=== PATIENT | male | born 1980 | race Caucasian/White ===

== ENCOUNTER 2019-12-17 13:52 | Inpatient (IN) | payer SELFPAY ==
[2019-12-17] VITALS (33 sets, daily range): BP systolic 103–126; BP diastolic 42–94; PULSE 57–98; RESP 0–20; TEMP 36.4–37.1; O2SAT 84–99
--- NOTE | 2019-12-17 14:20 | ED.GENADUL_ITS ---
Discharge Plan Discharge Details Chief Complaint: AMS/LOC Clinical Impression: Acute hyperkalemia, Altered mental status Admit Date/Time: 12/17/19 15:44 Admit Provider: Sukhdev Rodrigez Attending Provider: Sukhdev Rodriegz Primary Care Provider: None,None ED Provider: Chrissie Toro Discharge Data Discharge Date/Time-TO BE ENTERED AT DEPARTURE: 12/17/19 17:05 Medical Decision Making 39-year-old male presents to the ER with altered mental status. Patient was found unresponsive at 1230 by family, when EMS arrived patient was no longer unresponsive but was confused. Patient admits to doing cocaine and drinking beers last night. Patient does appear to be under the influence of some substance. He is sleepy, pupils are 4 mm bilaterally and round and sluggish. He does follow commands when directed. No obvious trauma noted. At this time head CT without contrast ordered, chest x-ray, labs alcohol and UDS. Patient is satting 97% on room air. 1452: Initial potassium came back critically high at 6.3 we will repeat a BMP to verify. 1545: Repeat potassium came back at 6.7 will initiate gram of calcium chloride, 10 mg continuous albuterol neb, 7 units of insulin, 50 mEq bicarb [address] Enriquez and hospitalist team regarding admission he agrees to accept patient for admission to ICU at this time for hyperkalemia and altered mental status. Kassandra ordered for urine drug screen sample. Patient is awake at this time. 1548: Spoke with Deysi, patients Mother who states that she found him unresponsive in a chair at his brothers this afternoon, he was having labored breathing and was confused. She states that they may have been smoking crack which may have been laced with Fentanyl. HPI General Mode of arrival: EMS . Date/Time Provider Initiated Documentation: 12/17/19 14:02 . Limitations to Documentation: altered mental status . Information obtained by: patient, EMS and RN notes reviewed . HPI Narrative: 39-year-old male presents to the ER with altered mental status. Patient was found unresponsive at 1230 by family, when EMS arrived patient was no longer unresponsive but was confused. Patient admits to doing cocaine and drinking beers last night. Patient does appear to be under the influence of some substance. He is sleepy, pupils are 4 mm bilaterally and round and sluggish. He does follow commands when directed. No obvious trauma noted. Related Data Home Medications Medication Instructions Recorded Confirmed Unknown [No Known Home Meds] 12/17/19 12/17/19 Allergies Allergy/AdvReac Type Severity Reaction Status Date / Time Penicillins AdvReac Intermediate unknown Unverified 12/17/19 14:14 General Stated Complaint: AMS/LOC JUAN MIGUEL: 3 Review of Systems Narrative: History limited by patient's medical condition. Constitutional: Negative for weight loss, normal body habitus, appears altered. HEENT: Denies trauma, headaches, sore throat, trouble swallowing. Chest: Denies chest pain, palpitations, irregular rhythm, hypertension. Respiratory: Denies Shortness of breath, cough, hemoptysis. GI: Denies abdominal pain, nausea, vomiting, diarrhea, constipation. : Denies dysuria, hematuria, flank pain, rectal bleeding. Neuro: Denies dizziness, blurry vision, weakness, syncope, headache or facial numbness. Hematologic: Denies easy bruising, intolerance to heat or cold, hair loss. Psychiatric Psychiatric: Reports as per HPI, Denies homicidal ideation (Denies) and Denies suicidal ideation [facility] Social History Smoking/Tobacco Use Status: Former Tobacco Use Drug use: Occasionally Do you feel safe in your relationship?: Yes Exam Narrative Exam Narrative: Constitutional: Appears stated age. Normal body habitus. See below Head: Normocephalic, no signs of trauma. Eyes: Pupils PERRLA, pupils are 4 mm bilaterally and sluggish, Red reflex noted, EOM's intact. Eyelids symmetrical without lesions, discharge, or swelling. ENT: Bilateral TM's WNL, External ear normal to inspection, no mastoid TTP, swelling, or erythema, Nasal turbinates WNL, no nasal discharge. Normal dentition, Posterior pharynx WNL, no exudate. Chest: RRR, Normal S1, S2, distal pulses intact. Resp: Lungs clear to auscultation bilaterally, no wheezes, rales, or rhonchi. Musculoskeletal: Normal gait, 5/5 strength to all four extremities. Skin: No suspicious rashes or lesions. Capillary refill less than 2 sec. Neurologic: Cranial nerves II-XII intact. DTR's intact. See below Hematologic/Lymphatic: No ecchymosis, no lymphadenopathy. Neuro General: patient awake, oriented Patient Orientation: Person, moves all extremities, no focal motor deficits, CN's II-XI intact bilaterally and patient confused (Appears intoxicated) Speech: abnormal speech slurred Motor: muscle tone normal throughout and strength 5/5 throughout Course Vital Signs Vital signs: Vital Signs Temperature 36.4 C L 12/17/19 14:03 Pulse 91 H 12/17/19 14:03 Respiratory Rate 18 12/17/19 14:03 Blood Pressure 118/81 12/17/19 14:03 Pulse Oximetry 97 12/17/19 14:03 Temperature 36.4 C L 12/17/19 14:03 Temperature Source Tympanic 12/17/19 14:03 Pulse 91 H 12/17/19 14:03 Respiratory Rate 18 12/17/19 14:03 Blood Pressure 118/81 12/17/19 14:03 Blood Pressure Position Supine 12/17/19 14:03 Pulse Oximetry 97 12/17/19 14:03 Oxygen Delivery Method Room Air 12/17/19 14:03 Oxygen Flow Rate 0 12/17/19 14:03 Pain Level 0 12/17/19 14:03
[2019-12-17] MEDS: Normal Saline 1,000 ML 1000 ML IV (14:28)
[2019-12-17 14:33] LABS: Abs Immature Grans 0.09 10^3/uL (0.0-0.06); Absolute Lymphocyte Count 0.73 10^3/uL (1.2-3.4); Absolute Monocyte Count 1.47 10^3/uL (0.1-0.8); Absolute Neutrophil Count 14.36 10^3/uL (1.2-6.7); Basophils % 0.2; Eosinophils % 0.1; HCT 46.4 % (40.0-50.0); HGB 14.9 g/dL (13.5-17.5); Immature Grans % 0.5; Lymphocytes % 4.4; MCHC 32.1 % (32.0-36.0); MCV 93.4 fL (80-95); MPV 9.8 fL (8.0-11.0); Monocytes % 8.8; Nucleated RBC 0 %; Platelet Count 336 10^3/uL (130-400); RBC 4.97 10^6/uL (4.36-5.78); RDW 13.8 % (11.8-14.1); RDW-SD 46.8 fL
[2019-12-17 14:39] LABS: Absolute Basophil Count 0.03 10^3/uL (0.0-0.2); Absolute Eosinophil Count 0.02 10^3/uL (0.0-0.7)
--- NOTE | 2019-12-17 14:45 | RT.EKG_ITS ---
APPROVED REPORT Exam: Resting ECG Patient Location: E HR:91 bpm ECG Measurements Heart Rate 91 AXIS AK 154 P 70 QRSd 89 QRS 71 QT 357 T 16 QTc 438 Conclusion Sinus rhythm...normal P axis, V-rate 60- 99 Lateral infarct, acute...ST >.10mV, V5 V6 I aVL. 1mm ST elevation in V5-6, consider early repolarization. Less than 1mm ST depression in lead III. No acute EKG to compare.
[2019-12-17 14:50] LABS: ALT 87 U/L (16-63); AST 85 U/L (15-37); Albumin 4.8 g/dL (3.4-5.0); Alkaline Phosphatase 54 U/L (46-116); Anion Gap 12.9 mmol/L (3-11); BUN 24 mg/dL (7-18); Bilirubin, Total 0.4 mg/dL (0.2-1.0); CO2 25.1 mmol/L (21.0-32.0); CREATININE 1.87 mg/dL (0.70-1.30); Calcium 9.2 mg/dL (8.5-10.1); Chloride 99 mmol/L (98-107); Estimated GFR 39.99 (mL/min/1.73m2); Glucose 203 mg/dL (74-106); Sodium 137 mmol/L (136-145); Total Protein 8.9 g/dL (6.4-8.2); Troponin I 0.05 ng/mL (<0.06)
[2019-12-17 14:53] LABS: Potassium 6.3 mmol/L (3.5-5.1)
[2019-12-17 15:05] LABS: ETHANOL BLOOD < 3.0 mg/dL (<3)
--- NOTE | 2019-12-17 15:20 | DI.CT_ITS ---
EXAM: CT HEAD WO CLINICAL HISTORY: AMS. TECHNIQUE: Imaging Protocol: Axial computed tomography images with coronal and sagittal reformatted images were created and reviewed COMPARISON: No exams were available for comparison FINDINGS: The ventricular system is normal in appearance. No evidence of acute intracranial hemorrhage, mass effect, or midline shift. The orbital structures are unremarkable. The temporal bone structures appear intact. Calvarium: Normal. Visualized Paranasal sinuses/Mastoids: Mild mucoperiosteal thickening of ethmoid sinuses, question ch ronic ethmoid sinusitis. Otherwise paranasal sinuses and mastoids are clear. IMPRESSION: Normal cranial CT. RADIATION DOSE DELIVERED: 754.35mGy.cm Total DLP 754.35mGy.cm Total DLP DATA REPOSITORY: All CT scans at this facility are submitted to the National Radiology Data Registry (NRDR) Dose Index Registry (DIR) with the [employer] (A[employer]). RADIATION OPTIMIZATION: All CT scans at this facility use at least one of these dose optimization te chniques: automated exposure control; mA and/or kV adjustment per patient size (includes targeted exa ms where dose is matched to clinical indication); or iterative reconstruction.
--- NOTE | 2019-12-17 15:20 | DI.RAD_ITS ---
EXAM: XR CHEST 2V PA LATERAL CLINICAL HISTORY: AMS, overdose TECHNIQUE: 2D digital imaging was performed. COMPARISON: CR CHEST 2 VIEWS PA,LAT from 03/14/2016 FINDINGS: The heart is not enlarged. The lungs are clear and well expanded. No pleural effusion seen. Mediastin al contours appear intact. IMPRESSION: Normal chest RADIATION DOSE DELIVERED: Total DLP
[2019-12-17 15:26] LABS: Anion Gap 11.3 mmol/L (3-11); BUN 24 mg/dL (7-18); CO2 24.7 mmol/L (21.0-32.0); CREATININE 1.57 mg/dL (0.70-1.30); Calcium 8.6 mg/dL (8.5-10.1); Chloride 100 mmol/L (98-107); Estimated GFR 48.93 (mL/min/1.73m2); Glucose 166 mg/dL (74-106); Sodium 136 mmol/L (136-145)
[2019-12-17 15:29] LABS: Potassium 6.7 mmol/L (3.5-5.1)
--- NOTE | 2019-12-17 15:33 | DI.VRAD_ITS ---
PROCEDURE INFORMATION: Exam: CT Head Without Contrast Exam date and time: 12/17/2019 3:11 PM Age: 39 years old Clinical indication: Other: AMS TECHNIQUE: Imaging protocol: Computed tomography of the head without contrast. Radiation optimization: All CT scans at this facility use at least one of these dose optimization techniques: automated exposure control; mA and/or kV adjustment per patient size (includes targeted exams where dose is matched to clinical indication); or iterative reconstruction. COMPARISON: No relevant prior studies available. FINDINGS: Brain: Normal. No hemorrhage. Unremarkable white matter. No mass effect. Ventricles: Normal. No ventriculomegaly. Bones/joints: Unremarkable. No acute fracture. Sinuses: Opacities in the ethmoid sinuses may represent sinusitis Mastoid air cells: Visualized mastoid air cells are well aerated. Soft tissues: Unremarkable. IMPRESSION: No acute intracranial hemorrhage.. Opacities in the ethmoid sinuses may represent sinusitis Dictated and Authenticated by: Alfredo Martínez MD. Ordering:SYEDA Dickens MD
--- NOTE | 2019-12-17 15:34 | DI.VRAD_ITS ---
PROCEDURE INFORMATION: Exam: XR Chest, 2 Views Exam date and time: 12/17/2019 3:22 PM Age: 39 years old Clinical indication: Other: AMS, overdose TECHNIQUE: Imaging protocol: XR of the chest Views: 2 views. COMPARISON: CR CHEST 2 VIEWS PA,LAT 03/14/2016 9:05 AM FINDINGS: Lungs: Unremarkable. No consolidation. Pleural space: Unremarkable. No pleural effusion. No pneumothorax. Heart/Mediastinum: Unremarkable. No cardiomegaly. Bones/joints: Unremarkable. IMPRESSION: No acute findings. Dictated and Authenticated by: Alfredo Martínez MD. Ordering:SYEDA Dickens MD
[2019-12-17 15:48] LABS: Bilirubin Negative (Negative); Blood Trace-intact (Negative); Clarity Clear (Clear); Glucose 100 mg/dL (Negative); Ketones Negative (Negative); Leukocyte Esterase Negative (Negative); Nitrite Negative (Negative); Specific Gravity >= 1.030 (1.005-1.025); Urobilinogen 0.2 EU/dL (Up TO 0.2); pH 5.5 (5-8)
[2019-12-17] MEDS: Insulin REGULAR-Human 100 UNITS/ML UNIT 7 UNITS SC (15:50)
[2019-12-17] MEDS: Sodium Bicarbonate 50 MEQ/50 ML SYR IVP (15:50)
[2019-12-17] MEDS: Calcium Chloride 1000 MG/10 ML SYR IVP (15:50)
[2019-12-17] MEDS: Dextrose 50%-Water 25 GM/50 ML SYR IVP (15:50)
[2019-12-17 15:56] LABS: *AMPHETAMINES SCREEN URINE Negative (Negative); *BARBITURATES SCREEN URINE Negative (Negative); *BENZODIAZEPINES SCREEN URINE Negative (Negative); Cannabinoids THC POSITIVE (Negative); Cocaine Screen,Urine POSITIVE (Negative); METHADONE URINE SCREEN Negative (Negative); OPIATES URINE SCREEN Negative (Negative); Tricyclic Antidepressants Negative (Negative)
[2019-12-17 16:14] LABS: Bacteria Few HPF (Negative); Crystals Negative HPF (Negative); Epithelial Cells Moderate HPF (Negative); Mucus Negative (Negative); RBC 0-2 HPF (0-2); WBC 0-2 HPF (0-5)
[2019-12-17 16:15] LABS: C & S Indicated? No; Casts 10-20 Hyaline LPF (Negative)
[2019-12-17 16:20] LABS: Creatine Kinase 638 U/L (39-308)
--- NOTE | 2019-12-17 16:38 | HPE_ITS ---
Date of service: 12/17/19 Time of Service: 16:39 Assessment and Plan Assessment and plan (1) Acute kidney injury (nontraumatic): Status: Acute Assessment and plan: Patient presented with hyperkalemia and acute kidney injury secondary to dehydration and elevated creatine kinase although not truly within the range for rhabdomyolysis. However we will continue with IV fluid hydration check a urine myoglobin level and monitor his CK levels. We will repeat a BMP this evening as well as again in the morning. (2) Altered mental status: Status: Acute Assessment and plan: Transient altered mental status secondary to cocaine abuse. Negative CT of his head and currently back to his baseline. Qualifiers: Altered mental status type: delirium Qualified Code(s): R41.0 - Disorientation, unspecified (3) Acute hyperkalemia: Status: Acute Assessment and plan: Hyperkalemia secondary to dehydration and acute kidney injury along with elevated CK possible early rhabdomyolysis. Recheck BMP this evening along with repeat troponin level. Patient to be given one-time dose of Kayexalate. If his potassium remains above 6 then we will repeat his EKG and treat him appropriately with calcium chloride and insulin. As long as his potassium is coming below 6 I think hydration should be adequate to bring his potassium levels down overnight. (4) Dehydration: Status: Acute Assessment and plan: As above. (5) Elevated CK: Status: Acute Assessment and plan: CK level in the 600s. This generally is not elevated enough to cause rhabdomyolysis however we will need to trend the levels and see what a peak at. (6) Cocaine abuse: Status: Acute Assessment and plan: We will monitor his troponin levels overnight to ensure there is been no acute myocardial injury. History of Present Illness History of Present Illness Chief Complaint: Altered mental status Narrative: 39-year-old male with no chronic medical issues was brought to the emergency department this afternoon by EMS because of altered mental status this morning. Patient was found by his brother at home to be acutely confused. Patient is now awake alert and oriented. 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 He says he had about 6 beers last night and also was doing some heroin. Patient denies chronic heroin abuse but says that he and his have been fighting lately and he could not shut his mind off so he decided to take the heroin to help him relax. He states his brother found him out asleep in the shed. His brother is not here to confirm his story for me. Patient denies any chronic medical issues and does not take any medications. He states he does not drink every night but usually have 2 or 3 beers when he does drink but had about 6 beers last night. The only other recreational duct drugs he uses is marijuana. His drug screen and his mother's call to me confirmed that he was using cocaine. She got the information from the people he had been with last night when he used the cocaine. His UDS is negative for opiates and therefore unlikely that he was using any heroin last night. Workup in the ER revealed hyperkalemia w/ serum potassium level of 6.3 and repeat level that was also elevated at 6.7 with creatinine of 1.57 and BUN of 24. EKG demonstrated NSR w/ diffuse T wave peaking and repolarization ST changes. Troponin I level was normal at 0.05. CK level was mildly elevated at 638. CT of the head w/out contrast showed no acute intracranial pathology. Patient was treated in the ER w/ NS x 1000 mL and given calcium chloride 1000 mg, sodium bicarbonate 50 mEq, insulin 7 units. He was also ordered albuterol but this was not given while in the ER. I have ordered repeat EKG and repeat BMP and troponin level and a dose of kayexalate. Repeat BMP and troponin will be done at 1800 and determine whether or not additional treatment will be needed for his hyperkalemia. Otherwise we will pursue aggressive iv hydration for his rhabdomyolysis and MATILDA. Review of Systems All systems reviewed & are unremarkable except as noted in HPI and below PFSH Social History Smoking/Tobacco Use Status: Former Tobacco Use Drug use: Occasionally Do you feel safe in your relationship?: Yes Meds Home Medications and Allergies Home Medications Medication Instructions Recorded Confirmed Type Unknown [No Known Home Meds] 12/17/19 12/17/19 History Allergies Allergy/AdvReac Type Severity Reaction Status Date / Time Penicillins AdvReac Intermediate unknown Unverified 12/17/19 14:14 Exam Narrative Exam Narrative: Young male lying in bed alert and oriented person place time circumstance. HEENT is remarkable for dry mucous membranes. Neck is supple nontender normal carotid pulses no JVD. Lungs are clear to auscultation. Heart is regular rate and rhythm without murmur rub or gallop. Abdomen soft nontender NABS no palpable masses no organomegaly. Lower extremities without peripheral cyanosis or edema. Neurologic exam he has normal range of motion normal strength in all 4 extremities. Results Labs Result diagrams: 12/17/19 14:23 12/17/19 15:00 Labs: Laboratory Results - last 24 hr 12/17/19 12/17/19 12/17/19 14:23 14:23 15:00 WBC 16.70 H RBC 4.97 Hgb 14.9 Hct 46.4 MCV 93.4 MCH 30.0 MCHC 32.1 RDW 13.8 Plt Count 336 MPV 9.8 Immature Gran % 0.5 Neutrophils % 86.0 Lymphocytes % 4.4 Monocytes % 8.8 Eosinophils % 0.1 Basophils % 0.2 Nucleated RBC % 0 Absolute Neutrophils 14.36 H Absolute Lymphocytes 0.73 L Absolute Monocytes 1.47 H Absolute Eosinophils 0.02 Absolute Basophils 0.03 Sodium 137 136 Potassium 6.3 H* 6.7 H* Chloride 99 100 Carbon Dioxide 25.1 24.7 Anion Gap 12.9 H 11.3 H BUN 24 H 24 H Creatinine 1.87 H 1.57 H Estimated GFR/1.73 m2 39.99 48.93 Glucose 203 H 166 H Calcium 9.2 8.6 Magnesium 3.0 H Total Bilirubin 0.4 AST 85 H ALT 87 H Alkaline Phosphatase 54 Creatine Kinase Troponin I 0.05 Total Protein 8.9 H Albumin 4.8 Urine Color Urine Clarity Urine pH Ur Specific [place] Urine Protein Urine Ketones Urine Blood Urine Nitrite Urine Bilirubin Urine Urobilinogen Ur Leukocyte Esterase Urine RBC Urine WBC Ur Epithelial Cells Urine Crystals Urine Bacteria Urine Casts Urine Mucus Ur Culture Indicated? Urine Glucose Urine Opiates Screen Urine Methadone Screen Ur Barbiturates Screen Ur Tricyclics Screen Ur Amphetamines Screen U Benzodiazepines Scrn Urine Cocaine Screen Ur THC Screen Ethyl Alcohol < 3.0 12/17/19 12/17/19 12/17/19 15:00 15:34 15:34 WBC RBC Hgb Hct MCV MCH MCHC RDW Plt Count MPV Immature Gran % Neutrophils % Lymphocytes % Monocytes % Eosinophils % Basophils % Nucleated RBC % Absolute Neutrophils Absolute Lymphocytes Absolute Monocytes Absolute Eosinophils Absolute Basophils Sodium Potassium Chloride Carbon Dioxide Anion Gap BUN Creatinine Estimated GFR/1.73 m2 Glucose Calcium Magnesium Total Bilirubin AST ALT Alkaline Phosphatase Creatine Kinase 638 H Troponin I Total Protein Albumin Urine Color Yellow Urine Clarity Clear Urine pH 5.5 Ur Specific [place] >= 1.030 H Urine Protein 100 H Urine Ketones Negative Urine Blood Trace-intact H Urine Nitrite Negative Urine Bilirubin Negative Urine Urobilinogen 0.2 Ur Leukocyte Esterase Negative Urine RBC 0-2 Urine WBC 0-2 Ur Epithelial Cells Moderate Urine Crystals Negative Urine Bacteria Few Urine Casts 10-20 hyaline Urine Mucus Negative Ur Culture Indicated? No Urine Glucose 100 Urine Opiates Screen Negative Urine Methadone Screen Negative Ur Barbiturates Screen Negative Ur Tricyclics Screen Negative Ur Amphetamines Screen Negative U Benzodiazepines Scrn Negative Urine Cocaine Screen Positive A Ur THC Screen Positive A Ethyl Alcohol Last Vital Signs Temp 36.4 C L 12/17/19 14:03 Pulse 91 H 12/17/19 14:03 Resp 18 12/17/19 14:03 BP 105/86 12/17/19 15:43 Pulse Ox 97 12/17/19 14:03 COVID-19 Screening Have you,or household,traveled outside [place] in last 14 days?: No Had IN PERSON contact w/suspected or confirmed C-19 person: No
--- NOTE | 2019-12-17 17:15 | RT.EKG_ITS ---
APPROVED REPORT Exam: Resting ECG Patient Location: I HR:82 bpm ECG Measurements Heart Rate 82 AXIS LA 144 P 69 QRSd 87 QRS 76 QT 360 T 29 QTc 422 Conclusion Sinus rhythm...normal P axis, V-rate 60- 99 Lateral infarct, acute...ST >.10mV, V5 V6 I aVL Borderline ST elevation, anterior leads, likely early repol
[2019-12-17] MEDS: Normal Saline 250 ML IV (17:50)
[2019-12-17] MEDS: Normal Saline Flush 10 ML SYR IVP (17:57)
[2019-12-17 18:41] LABS: Anion Gap 9.9 mmol/L (3-11); BUN 23 mg/dL (7-18); CO2 26.1 mmol/L (21.0-32.0); CREATININE 1.18 mg/dL (0.70-1.30); Calcium 9.8 mg/dL (8.5-10.1); Chloride 103 mmol/L (98-107); Glucose 94 mg/dL (74-106); Potassium 4.9 mmol/L (3.5-5.1); Sodium 139 mmol/L (136-145)
[2019-12-17 18:52] LABS: Troponin I 0.08 ng/mL (<0.06)
[2019-12-17] MEDS: Normal Saline 1,000 ML 150 ML IV (20:35)
[2019-12-17 21:45] LABS: Magnesium 2.3 mg/dL (1.8-2.4)
[2019-12-17 21:49] LABS: Troponin I 0.12 ng/mL (<0.06)
[2019-12-18] VITALS (19 sets, daily range): BP systolic 88–134; BP diastolic 51–85; PULSE 49–78; RESP 6–21; TEMP 36.3–36.7; O2SAT 96–100
[2019-12-18] MEDS: Normal Saline 1,000 ML 150 ML IV ×3 (03:13→22:57)
[2019-12-18 06:34] LABS: Abs Immature Grans 0.03 10^3/uL (0.0-0.06); Absolute Basophil Count 0.01 10^3/uL (0.0-0.2); Absolute Eosinophil Count 0.07 10^3/uL (0.0-0.7); Absolute Lymphocyte Count 1.69 10^3/uL (1.2-3.4); Absolute Monocyte Count 1.18 10^3/uL (0.1-0.8); Absolute Neutrophil Count 5.56 10^3/uL (1.2-6.7); Basophils % 0.1; Eosinophils % 0.8; HCT 37.6 % (40.0-50.0); HGB 12.2 g/dL (13.5-17.5); Immature Grans % 0.4; Lymphocytes % 19.8; MCHC 32.4 % (32.0-36.0); MCV 92.6 fL (80-95); MPV 9.7 fL (8.0-11.0); Monocytes % 13.8; Neutrophils % 65.1; Nucleated RBC 0 %; Platelet Count 244 10^3/uL (130-400); RBC 4.06 10^6/uL (4.36-5.78); RDW 13.9 % (11.8-14.1); RDW-SD 47.7 fL; WBC 8.54 10^3/uL (4.4-10.8)
[2019-12-18 07:04] LABS: ALT 77 U/L (16-63); AST 121 U/L (15-37); Albumin 3.4 g/dL (3.4-5.0); Alkaline Phosphatase 33 U/L (46-116); Anion Gap 4.2 mmol/L (3-11); BUN 17 mg/dL (7-18); Bilirubin, Total 0.2 mg/dL (0.2-1.0); CO2 31.8 mmol/L (21.0-32.0); CREATININE 0.99 mg/dL (0.70-1.30); Calcium 8.6 mg/dL (8.5-10.1); Chloride 102 mmol/L (98-107); Glucose 110 mg/dL (74-106); Potassium 4.3 mmol/L (3.5-5.1); Sodium 138 mmol/L (136-145); Total Protein 6.4 g/dL (6.4-8.2)
[2019-12-18 07:21] LABS: Creatine Kinase 3730 U/L (39-308)
[2019-12-18 07:26] LABS: Troponin I 0.07 ng/mL (<0.06)
--- NOTE | 2019-12-18 09:03 | PDOC.CMIN ---
- If Service Date Differs Date of service: 12/18/19 Time of Service: 09:03 Care Management Initial Assess REASON FOR HOSPITALIZATION:: Acute Hyperkalemia, AMS PAST MEDICAL HISTORY/PAST SURGICAL HISTORY:: Medical History. Cocaine abuse, elevated CK, dehydration, acute kidney injury (non traumatic), acute hyperkalemia, altered mental status. PREVIOUS FUNCTIONAL STATUS/SOCIAL/FAMILY SUPPORTS:: Carlitos lives in [facility] with his girlfriend, Kimmy. 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 He is independent at baseline. CURRENT FUNCTIONAL STATUS:: Carlitos was sitting on the side of his bed when CM met with him. He reported that his right foot is tingling and 'doesn't feel normal'. His mother was in the room and expressed concern regarding his gait. CM will relay this information to the provider. CM will continue to follow. ADVANCE DIRECTIVES:: None on file. Has patient been provided with info about the portal/API?: No Did the patient sign up for the portal?: No CODE STATUS:: Full Code INSURANCE COVERAGE / FINANCIAL ISSUES:: Self Pay. CM will send referral to [facility]. CURRENT HOME/COMMUNITY SERVICES/EQUIPMENT:: No current equipment or services in the community. PRIMARY CARE PHYSICIAN:: No PCP, CM will send referral for follow up. 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 ANTICIPATED BARRIERS TO DISCHARGE:: None identified at this time. TRANSPORTATION:: Via private vehicle with family. PLAN:: Anticipate Carlitos will return home when medically cleared. CM will send a referral to [facility] for insurance, as well as a referral for PCP follow up. CM will continue to follow.
--- NOTE | 2019-12-18 09:19 | W.PM.PROGNOT ---
Date of Service Date of service: 12/18/19 Time of Service: 09:27 Assessment and Plan Assessment and plan (1) Acute kidney injury (nontraumatic): Status: Acute Assessment and plan: Improving BUN status 17 creatinine is down to 0.99. Hyperkalemia is resolved. CK is now up to 6000 consistent with rhabdomyolysis. Patient is hemodynamically stable and able to be transferred out of the ICU to the medical/surgical floor however he still needs IV fluid hydration until his CK levels have declined. (2) Altered mental status: Status: Resolved Assessment and plan: Transient altered mental status secondary to cocaine abuse. Negative CT of his head and currently back to his baseline. Qualifiers: Altered mental status type: delirium Qualified Code(s): R41.0 - Disorientation, unspecified (3) Acute hyperkalemia: Status: Resolved Assessment and plan: Hyperkalemia secondary to rhabdomyolysis and dehydration and acute kidney injury. Hyperkalemia has resolved with IV fluid hydration and Kayexalate. Renal function has now returned to normal. We will continue with IV fluid hydration until his CK levels have declined to within normal limits or near normal limits. Will transfer out of the ICU and out to the medical/surgical floor. (4) Dehydration: Status: Acute Assessment and plan: As above. (5) Elevated CK: Status: Acute Assessment and plan: CK levels initially were 600 on admission but have climbed to 6000 consistent with a acute rhabdomyolysis. We will continue with IV fluid hydration until CK levels returned to near normal. (6) Cocaine abuse: Status: Acute Assessment and plan: We will monitor his troponin levels overnight to ensure there is been no acute myocardial injury. Patient had a transient rise in his troponin I levels that peaked at 0.12 and now back to 0.07. These are not at the threshold to call this an acute myocardial infarction. Patient is totally asymptomatic. This may have been demand ischemia from his cocaine use. We will repeat his EKG today and check an echocardiogram in the morning. Patient mainly needs to avoid abuse of stimulants such as amphetamines or use of cocaine. (7) Rhabdomyolysis: Status: Acute Assessment and plan: 30Continue IV fluid hydration recheck CK levels in the morning. Running to near normal we will plan for discharge home tomorrow. Qualifiers: Rhabdomyolysis type: non-traumatic Qualified Code(s): M62.82 - Rhabdomyolysis (8) Numbness of right foot: Status: Acute Assessment and plan: Patient complains of numbness over the posterior calf and the dorsum of his right foot but has good movement and normal pulses. I suspect that this is probably due to compression of peripheral nerves from lying down the ground for prolonged period of time. This should improve over time if not he will need referral to neurology. Objective Objective Clinical Data: Abnormal lab results 12/17/19 12/17/19 12/17/19 Range/Units 14:23 14:23 15:00 WBC 16.70 H (4.4-10.8) 10^3/uL RBC (4.36-5.78) 10^6/uL Hgb (13.5-17.5) g/dL Hct (40.0-50.0) % Absolute Neutrophils 14.36 H (1.2-6.7) 10^3/uL Absolute Lymphocytes 0.73 L (1.2-3.4) 10^3/uL Absolute Monocytes 1.47 H (0.1-0.8) 10^3/uL Potassium 6.3 H* 6.7 H* (3.5-5.1) mmol/L Anion Gap 12.9 H 11.3 H (3-11) mmol/L BUN 24 H 24 H (7-18) mg/dL Creatinine 1.87 H 1.57 H (0.70-1.30) mg/dL Glucose 203 H 166 H (74-106) mg/dL Magnesium 3.0 H (1.8-2.4) mg/dL AST 85 H (15-37) U/L ALT 87 H (16-63) U/L Alkaline Phosphatase (46-116) U/L Creatine Kinase (39-308) U/L Troponin I (<0.06) ng/mL Total Protein 8.9 H (6.4-8.2) g/dL Ur Specific [place] (1.005-1.025) Urine Protein (Negative) mg/dL Urine Blood (Negative) Urine Cocaine Screen (Negative) Ur THC Screen (Negative) 12/17/19 12/17/19 12/17/19 Range/Units 15:00 15:34 15:34 WBC (4.4-10.8) 10^3/uL RBC (4.36-5.78) 10^6/uL Hgb (13.5-17.5) g/dL Hct (40.0-50.0) % Absolute Neutrophils (1.2-6.7) 10^3/uL Absolute Lymphocytes (1.2-3.4) 10^3/uL Absolute Monocytes (0.1-0.8) 10^3/uL Potassium (3.5-5.1) mmol/L Anion Gap (3-11) mmol/L BUN (7-18) mg/dL Creatinine (0.70-1.30) mg/dL Glucose (74-106) mg/dL Magnesium (1.8-2.4) mg/dL AST (15-37) U/L ALT (16-63) U/L Alkaline Phosphatase (46-116) U/L Creatine Kinase 638 H (39-308) U/L Troponin I (<0.06) ng/mL Total Protein (6.4-8.2) g/dL Ur Specific [place] >= 1.030 H (1.005-1.025) Urine Protein 100 H (Negative) mg/dL Urine Blood Trace-intact H (Negative) Urine Cocaine Screen Positive A (Negative) Ur THC Screen Positive A (Negative) 12/17/19 12/17/19 12/17/19 Range/Units 18:00 18:00 21:07 WBC (4.4-10.8) 10^3/uL RBC (4.36-5.78) 10^6/uL Hgb (13.5-17.5) g/dL Hct (40.0-50.0) % Absolute Neutrophils (1.2-6.7) 10^3/uL Absolute Lymphocytes (1.2-3.4) 10^3/uL Absolute Monocytes (0.1-0.8) 10^3/uL Potassium (3.5-5.1) mmol/L Anion Gap (3-11) mmol/L BUN 23 H (7-18) mg/dL Creatinine (0.70-1.30) mg/dL Glucose (74-106) mg/dL Magnesium (1.8-2.4) mg/dL AST (15-37) U/L ALT (16-63) U/L Alkaline Phosphatase (46-116) U/L Creatine Kinase (39-308) U/L Troponin I 0.08 H* 0.12 H* (<0.06) ng/mL Total Protein (6.4-8.2) g/dL Ur Specific [place] (1.005-1.025) Urine Protein (Negative) mg/dL Urine Blood (Negative) Urine Cocaine Screen (Negative) Ur THC Screen (Negative) 12/18/19 12/18/19 12/18/19 Range/Units 06:15 06:15 06:15 WBC (4.4-10.8) 10^3/uL RBC 4.06 L (4.36-5.78) 10^6/uL Hgb 12.2 L D (13.5-17.5) g/dL Hct 37.6 L (40.0-50.0) % Absolute Neutrophils (1.2-6.7) 10^3/uL Absolute Lymphocytes (1.2-3.4) 10^3/uL Absolute Monocytes 1.18 H (0.1-0.8) 10^3/uL Potassium (3.5-5.1) mmol/L Anion Gap (3-11) mmol/L BUN (7-18) mg/dL Creatinine (0.70-1.30) mg/dL Glucose 110 H (74-106) mg/dL Magnesium (1.8-2.4) mg/dL AST 121 H (15-37) U/L ALT 77 H (16-63) U/L Alkaline Phosphatase 33 L (46-116) U/L Creatine Kinase 3730 H (39-308) U/L Troponin I (<0.06) ng/mL Total Protein (6.4-8.2) g/dL Ur Specific [place] (1.005-1.025) Urine Protein (Negative) mg/dL Urine Blood (Negative) Urine Cocaine Screen (Negative) Ur THC Screen (Negative) Vital Signs Temperature 36.6 C 12/18/19 04:20 Temperature Source Temporal Artery Scan 12/18/19 04:20 Pulse 53 L 12/18/19 05:03 Pulse 78 12/18/19 05:03 Respiratory Rate 21 12/18/19 05:03 Respiratory Effort 12/18/19 04:20 Respiratory Depth Normal 12/18/19 04:20 Respiratory Pattern Normal 12/18/19 04:20 Blood Pressure 88/51 L 12/18/19 05:03 Blood Pressure Mean 60 12/18/19 05:03 Blood Pressure Position Sitting 12/18/19 04:20 Pulse Oximetry 97 12/18/19 05:03 Oxygen Delivery Method Nasal Cannula 12/18/19 04:20 Oxygen Flow Rate 2 12/18/19 04:20 Pain Level 0 12/18/19 04:20 Intake & Output 12/17/19 12/17/19 12/18/19 11:59 23:59 11:59 Intake Total 1250 / 1250 1955 / 1955 Output Total 600 / 600 775 / 775 Balance 650 / 650 1180 / 1180 Weight 73.6 kg 74.8 kg Intake: IV 1250 / 1250 995 / 995 Oral 960 / 960 Output: Urine 600 / 600 775 / 775 Other: Urine Color Yellow Yellow Urine Appearance Clear Clear Urine Odor None None Voiding Methods Urinal Urinal Laboratory Results WBC 8.54 10^3/uL (4.4-10.8) D 12/18/19 06:15 RBC 4.06 10^6/uL (4.36-5.78) L 12/18/19 06:15 Hgb 12.2 g/dL (13.5-17.5) L D 12/18/19 06:15 Hct 37.6 % (40.0-50.0) L 12/18/19 06:15 MCV 92.6 fL (80-95) 12/18/19 06:15 MCH 30.0 pg (27.0-33.0) 12/18/19 06:15 MCHC 32.4 % (32.0-36.0) 12/18/19 06:15 RDW 13.9 % (11.8-14.1) 12/18/19 06:15 Plt Count 244 10^3/uL (130-400) 12/18/19 06:15 MPV 9.7 fL (8.0-11.0) 12/18/19 06:15 Immature Gran % 0.4 12/18/19 06:15 Neutrophils % 65.1 12/18/19 06:15 Lymphocytes % 19.8 12/18/19 06:15 Monocytes % 13.8 12/18/19 06:15 Eosinophils % 0.8 12/18/19 06:15 Basophils % 0.1 12/18/19 06:15 Nucleated RBC % 0 % 12/18/19 06:15 Absolute Neutrophils 5.56 10^3/uL (1.2-6.7) 12/18/19 06:15 Absolute Lymphocytes 1.69 10^3/uL (1.2-3.4) 12/18/19 06:15 Absolute Monocytes 1.18 10^3/uL (0.1-0.8) H 12/18/19 06:15 Absolute Eosinophils 0.07 10^3/uL (0.0-0.7) 12/18/19 06:15 Absolute Basophils 0.01 10^3/uL (0.0-0.2) 12/18/19 06:15 Sodium 138 mmol/L (136-145) 12/18/19 06:15 Potassium 4.3 mmol/L (3.5-5.1) 12/18/19 06:15 Chloride 102 mmol/L (98-107) 12/18/19 06:15 Carbon Dioxide 31.8 mmol/L (21.0-32.0) 12/18/19 06:15 Anion Gap 4.2 mmol/L (3-11) 12/18/19 06:15 BUN 17 mg/dL (7-18) D 12/18/19 06:15 Creatinine 0.99 mg/dL (0.70-1.30) 12/18/19 06:15 Estimated GFR/1.73 m2 >= 60.00 (mL/min/1.73m2) 12/18/19 06:15 Glucose 110 mg/dL (74-106) H 12/18/19 06:15 Calcium 8.6 mg/dL (8.5-10.1) 12/18/19 06:15 Magnesium 2.3 mg/dL (1.8-2.4) 12/17/19 21:07 Total Bilirubin 0.2 mg/dL (0.2-1.0) 12/18/19 06:15 AST 121 U/L (15-37) H 12/18/19 06:15 ALT 77 U/L (16-63) H 12/18/19 06:15 Alkaline Phosphatase 33 U/L (46-116) L 12/18/19 06:15 Creatine Kinase 3730 U/L (39-308) H 12/18/19 06:15 Troponin I 0.07 ng/mL (<0.06) 12/18/19 06:15 Total Protein 6.4 g/dL (6.4-8.2) 12/18/19 06:15 Albumin 3.4 g/dL (3.4-5.0) 12/18/19 06:15 Urine Color Yellow (Yellow) 12/17/19 15:34 Urine Clarity Clear (Clear) 12/17/19 15:34 Urine pH 5.5 (5-8) 12/17/19 15:34 Ur Specific [place] >= 1.030 (1.005-1.025) H 12/17/19 15:34 Urine Protein 100 mg/dL (Negative) H 12/17/19 15:34 Urine Ketones Negative mg/dL (Negative) 12/17/19 15:34 Urine Blood Trace-intact (Negative) H 12/17/19 15:34 Urine Nitrite Negative (Negative) 12/17/19 15:34 Urine Bilirubin Negative (Negative) 12/17/19 15:34 Urine Urobilinogen 0.2 EU/dL (Up TO 0.2) 12/17/19 15:34 Ur Leukocyte Esterase Negative (Negative) 12/17/19 15:34 Urine RBC 0-2 HPF (0-2) 12/17/19 15:34 Urine WBC 0-2 HPF (0-5) 12/17/19 15:34 Ur Epithelial Cells Moderate HPF (Negative) 12/17/19 15:34 Urine Crystals Negative HPF (Negative) 12/17/19 15:34 Urine Bacteria Few HPF (Negative) 12/17/19 15:34 Urine Casts 10-20 hyaline LPF (Negative) 12/17/19 15:34 Urine Mucus Negative (Negative) 12/17/19 15:34 Ur Culture Indicated? No 12/17/19 15:34 Urine Glucose 100 mg/dL (Negative) 12/17/19 15:34 Urine Opiates Screen Negative (Negative) 12/17/19 15:34 Urine Methadone Screen Negative (Negative) 12/17/19 15:34 Ur Barbiturates Screen Negative (Negative) 12/17/19 15:34 Ur Tricyclics Screen Negative (Negative) 12/17/19 15:34 Ur Amphetamines Screen Negative (Negative) 12/17/19 15:34 U Benzodiazepines Scrn Negative (Negative) 12/17/19 15:34 Urine Cocaine Screen Positive (Negative) A 12/17/19 15:34 Ur THC Screen Positive (Negative) A 12/17/19 15:34 Ethyl Alcohol < 3.0 mg/dL (<3) 12/17/19 14:23
--- NOTE | 2019-12-18 10:00 | RT.EKG_ITS ---
APPROVED REPORT Exam: Resting ECG Patient Location: I HR:54 bpm ECG Measurements Heart Rate 54 AXIS AZ 148 P 83 QRSd 88 QRS 66 QT 411 T 17 QTc 391 Conclusion Sinus bradycardia...rate< 60 ST elev, probable normal early repol pattern...ST elevation, age<55
[2019-12-18 11:37] LABS: COVID-19 RT-PCR UVMMC Result Negative (Negative)
[2019-12-19 00:07] VITALS: BP 134/79; PULSE 71; RESP 17; TEMP 37.9; O2SAT 99
[2019-12-19] MEDS: Normal Saline 1,000 ML 150 ML IV ×3 (05:01→21:55)
[2019-12-19 07:12] VITALS: BP 133/89; PULSE 71; RESP 17; TEMP 36.7; O2SAT 97
--- NOTE | 2019-12-19 07:30 | DI.US_ITS ---
APPROVED REPORT EXAM: Comprehensive 2D, Doppler, and color-flow Echocardiogram Patient Location: In-Patient Room/Bed: [facility] Resource Analyst: Kathie Timmons RDCS (AE) Indications: Abnormal Troponin Other Information Study Quality: Good Conclusion Left Ventricle : The left ventricle is normal size. The left ventricular systolic function is normal. The left ventricular ejection fraction is within the normal range. There is normal left ventricular wall thickness. There is normal LV segmental wall motion. The left ventricular diastolic function is normal. LVEF is 50-55%. Right Ventricle : The right ventricle is normal size. The right ventricular systolic function is norm al. The RVSP is 29.2 mmHg. Atria : The left atrium size is normal. The right atrium size is normal. Mitral Valve : The mitral valve is normal in structure. No evidence of mitral valve stenosis. Mild mi tral regurgitation. Great Vessels : The aortic root is normal in size. The ascending aorta is normal in size. Aortic arch is normal in caliber. The IVC collapses <50% with inspiration. There is no prior study available for comparison. Wall motion Left Ventricle The left ventricle is normal size. The left ventricular systolic function is normal. The left ventric ular ejection fraction is within the normal range. There is normal left ventricular wall thickness. T here is normal LV segmental wall motion. The left ventricular diastolic function is normal. There is no ventricular septal defect visualized. LVEF is 50-55%. Right Ventricle The right ventricle is normal size. The right ventricular systolic function is normal. The RVSP is 29 .2 mmHg. Atria The left atrium size is normal. The right atrium size is normal. The interatrial septum is intact wit h no evidence for an atrial septal defect. Aortic Valve Aortic valve is trileaflet. The aortic valve is normal in structure. There is no aortic valvular sten osis. No aortic regurgitation is present. Mitral Valve The mitral valve is normal in structure. No evidence of mitral valve stenosis. Mild mitral regurgitat ion. Tricuspid Valve The tricuspid valve is normal in structure. There is no tricuspid valve stenosis. Mild tricuspid regu rgitation. Pulmonic Valve The pulmonary valve is normal in structure. There is no pulmonic valvular stenosis. Mild pulmonic reg urgitation. Great Vessels The aortic root is normal in size. The ascending aorta is normal in size. Aortic arch is normal in ca liber. The IVC collapses <50% with inspiration. Pericardium There is no pericardial effusion. There is no pleural effusion. 2D Dimensions IVSD d PLAX 0.86 cm M: 0.6-1.2 LV Vol A2C d MOD 163.9 mL LVPW d PLAX 0.87 cm M: 0.6 - 1.2 LV Vol A4C d MOD 156.2 mL LVID d PLAX 5.29 cm M: 4.2 - 5.8 LA vol/ BSA A2C s A-L 34.7 mL/m2 LVDs 3.95 cm M: 2.5 - 4.0 LA vol/ BSA A4C s A-L 28.8 mL/m2 Ao Root d 3.42 cm M: 3.1 - 3.7 LA Vol/ BSA Biplane s A-L 32.4 mL/m2 RA Area A4C 14.87 cm2 LA Area A4C s MOD 17.84 cm2 RA Vol/ BSA A4C s A-L 23.4 mL/m2 LA Area A2C s MOD 19.11 cm2 Ao Asc Diam d 3.20 cm M: 2.6 - 3.4 LV EF A4C MOD 50.5 % LV EF Teichholz 49.1 % LV EF A2C MOD 55.5 % LVEF (V[place]enor's) 52.83 % M: 52 - 72 LV EF Biplane MOD 52.8 % LV Volume 124.58 mL M: 62 - 150 SV 85.57 mL LV Volume Index 66.97 mL/m2 M: 34 - 74 SV Index 46.04 mL/m2 LV Vol Biplane MOD 162.0 mL FS 25.00 % M-Mode TAPSE 1.82 cm (M/F) >1.7 LV Diastology MV E' medial 0.110 (>0.07 m/s) E/A Ratio 1.4 LV E/e MED 8.00 (<14) MV E Vmax 0.88 (0.4-1.3 m/s) MV E' lateral 0.137 (>0.1 m/s) MV A Vmax 0.65 (0.4-1.3 m/s) LV E/e LAT 6.45 (<14) MV E/A Ratio 1.27 MV E/E' medial 8.03 MV E/E' lateral 6.45 Aortic Valve LVOT Vmax 0.97 m/s LVOT Mean Herson. 0.61 m/s LVOT Peak Grad 3.7 mmHg LVOT Mean Grad 1.8 mmHg LVOT VTI 0.178 m AoV Vmax 1.25 m/s Velocity Ratio 0.77 AoV Mean Herson. 0.93 m/s AoV Peak Grad 6.2 mmHg AoV Mean Grad 3.7 mmHg AoV VTI 0.223 m Mitral Valve MV DT 230 (160-240 msec) MR PISA Radius 0.38 cm MV PHT 67 msec MR Aliasing Velocity 0.35 m/s MV Area PHT 3.30 cm2 MR PISA 0.92 cm2 MV VTI 0.319 m Pulmonary Valve PV Vmax 0.90 (0.5-1.5 m/s) RVOT Peak Gr. 1.48 mmHg PV Peak Grad 3.2 mmHg RVOT Mean Gr. 0.80 mmHg PV Mean Grad 1.6 mmHg RVOT VTI 0.127 m PV VTI 0.168 m RVOT Vmax 0.61 m/s Tricuspid Valve TR Peak Grad 21.2 mmHg TR Vmax 2.30 m/s RA Pressure 8.00 mmHg RVSP (TR) 29.2 mmHg
[2019-12-19 08:24] LABS: Anion Gap 5.3 mmol/L (3-11); BUN 10 mg/dL (7-18); CO2 29.7 mmol/L (21.0-32.0); CREATININE 0.96 mg/dL (0.70-1.30); Calcium 8.3 mg/dL (8.5-10.1); Chloride 105 mmol/L (98-107); Glucose 99 mg/dL (74-106); Potassium 4.1 mmol/L (3.5-5.1); Sodium 140 mmol/L (136-145)
[2019-12-19 08:28] LABS: Creatine Kinase 3727 U/L (39-308)
--- NOTE | 2019-12-19 09:15 | INITIAL_ITS ---
- If Service Date Differs Date of service: 12/19/19 Time of Service: 14:07 Care Management Initial Assess REASON FOR HOSPITALIZATION:: Delirium, MATILDA, Hyperkalemia PAST MEDICAL HISTORY/PAST SURGICAL HISTORY:: Cocaine use disorder, acute kidney failure, anesthesia of skin, rhabdomyolysis, hyperkalemia PREVIOUS FUNCTIONAL STATUS/SOCIAL/FAMILY SUPPORTS:: Carlitos resides with his significant other and children. 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 CURRENT FUNCTIONAL STATUS:: Carlitos is sleeping soundly when CM enters room, his mother remains at his bedside. ADVANCE DIRECTIVES:: None on file at [facility]. Has patient been provided with info about the portal/API?: Yes Did the patient sign up for the portal?: No CODE STATUS:: Full Code INSURANCE COVERAGE / FINANCIAL ISSUES:: Self Pay: GRACIE referral completed CURRENT HOME/COMMUNITY SERVICES/EQUIPMENT:: No current services or equipment. PRIMARY CARE PHYSICIAN:: Referral sent to [facility] for PCP assignment. POTENTIAL DISCHARGE NEEDS:: PCP, Insurance referrals completed. ADRY discussion re: levels of care, readiness to change. PATIENT/FAMILY EDUCATION NEEDS:: Review discharge instructions, discuss Ask Me Three. ANTICIPATED BARRIERS TO DISCHARGE:: None identified. TRANSPORTATION:: Via private vehicle with family. PLAN:: Carlitos will return home when ready per MD. He will follow up with his PCP and plan of care as prescribed. Referrals for service attachment completed, CM continues to follow. Carlitos will transport via private vehicle with family.
--- NOTE | 2019-12-19 11:03 | W.NUTRFU ---
Date of service: 12/19/19 Time of Service: 11:03 Nutritional Follow up NOTE: 39 yo male admitted with drug overdose. BMI wnl, following regular diet with adequate intake to meet nutrient and fluid requirements. Not at risk for nutritional decline at this time. Time Spent in Nutritional Counseling and Treatment: 0 time spent
--- NOTE | 2019-12-19 12:23 | PT.INIE ---
Date of service: 12/19/19 Time of Service: 10:15 PT Notes Visit Reasons: DELIRIUM,MATILDA,HYPERKALEMIA Physical Therapy Inpatient Initial Evaluation Date: 12/19/2019 Referring Doctor: Barbara Miller NP PT Orders: PT CONSULT: Eval/treat. Precautions: Fall. Standard. Activity as tolerated. Patient Profile/Admitting Diagnosis: Carlitos is a 39-year-old male who presented to the ED on 12/17/2019 with presentation of altered mental status. He is diagnosed with acute kidney injury, acute hyperkalemia, dehydration, elevated creatinine kinase, and cocaine abuse. PMHX: Unremarkble Social History/Home Situation: Carlitos lives with family in a private home with 2 steps to enter without rails. 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 Independent with all aspects of ADLs without the need for an assistive ambulatory device nor adaptive equipment. Equipment Owned/DME: None Subjective: Agreeable to PT consult. Continues to report numbness on his right foot but of significantly less severity compared to day of admission. Denies headache, dizziness, and chest pain throughout session. Objective: General Observation: IV in the left UE. Mental Status: Alert and oriented x4 Pain: None ROM: Right Upper Extremity: Shoulder Flexion WFL. Shoulder abduction WFL. Elbow flexion WFL. Wrist flexion WFL. Opening and closing of hand WFL. Left Upper Extremity: Shoulder Flexion WFL. Shoulder abduction WFL. Elbow flexion WFL. Wrist flexion WFL. Opening and closing of hand WFL. Right Lower Extremity: Hip flexion WFL. Hip abduction WFL. Knee flexion WFL. Ankle dorsiflexion WFL. Ankle plantarflexion WFL. Left Lower Extremity: Hip flexion WFL. Hip abduction WFL. Knee flexion WFL. Ankle dorsiflexion WFL. Ankle plantarflexion WFL. Strength: Right Upper Extremity: Shoulder flexors 5/5. Shoulder abductors 5/5. Elbow flexors 5/5. Elbow extensors 5/5. Human Resources Receptionist strong. Left Upper Extremity: Shoulder flexors 5/5. Shoulder abductors 5/5. Elbow flexors 5/5. Elbow extensors 5/5. Human Resources Receptionist strong. Right Lower Extremity: Hip flexors 5/5. Hip abductors 5/5. Knee flexors 5/5. Knee extensors 5/5. Ankle dorsiflexors 5/5. Ankle plantarflexors 5/5. Left Lower Extremity:Hip flexors 5/5. Hip abductors 5/5. Knee flexors 5/5. Knee extensors 5/5. Ankle dorsiflexors 5/5. Ankle plantarflexors 5/5. Sensation: Intact as to pain and pressure on bilateral lower extremities except for the right foot which he states still has minimal numbness especially with weight bearing. Bed Mobility/Transfers: Rolling independent Supine to sit independent Sit to supine independent Sit to stand independent Stand to sit independent Bed to chair independent Chair to bed independent Gait: Tolerated level surface ambulation of 300 feet without an assistive device with full weight bearing requiring supervision. Gait pattern unremarkable. Carlitos was initially hesitant with the first few steps but then was able to self-correct as he continued the activity. Reported numbness in his right foot with each weight bearing. Balance: Static Sitting: Normal Dynamic Sitting: Normal Static Standing: Normal Dynamic Standing: Good Special Tests: Mobility Limitations Standardized Measure [facility] 6 clicks Basic Mobility Inpatient Short Form: Raw Score: 24 CMS Score: 0% deficit 30-second chair rise score: 13 signifying good B LE strength and dynamic balance Informed Consent/Education: Patient instructed in purpose of PT consult and plan of care. Assessment: Carlitos demonstrates 0% deficit on the [facility] mobility assessment. He also scored high on the 30-second chair rise test indicating good lower extremity strength and dynamic standing balance. States that the numbness has significantly subsided and he is hoping that he can go home today as soon as he is medically cleared. No skilled services needed at this time. Patient is assessed as a 00622 level complexity based on the following: History: 39-year-old male with impairment level findings, functional limitations, and past medical history as indicated above Examination: Demonstrable impairment in strength, balance, and mobility level with underlying impairments and functional limitations as documented above Presentation:Evolving Decision Makin low complexity Goals: N/A. PT consult only. Plan of Care/Treatment Plan: N/A. PT consult only. DISCHARGE RECOMMENDATIONS: Home when medically cleared by hospitalist. No equipment needs at this time. TREATMENT CODE/TIME: 30506 x 20 minutes beginning at 10:15 AM Thank you for the opportunity to participate in the care of this patient. Jordyn Morley PT, DPT, CLT [facility] [place], [place]
--- NOTE | 2019-12-19 13:20 | PGE_ITS ---
Date of Service Date of service: 12/19/19 Time of Service: 13:20 Assessment and Plan Assessment and plan (1) Acute kidney injury (nontraumatic): Status: Resolved Assessment and plan: Resolved (2) Altered mental status: Status: Resolved Assessment and plan: Transient altered mental status secondary to cocaine abuse. Negative CT of his head and currently back to his baseline. Qualifiers: Altered mental status type: delirium Qualified Code(s): R41.0 - Disorientation, unspecified (3) Acute hyperkalemia: Status: Resolved Assessment and plan: resolved (4) Dehydration: Status: Resolved Assessment and plan: As above. (5) Elevated CK: Status: Acute Assessment and plan: CK levels initially were 600 on admission but have climbed to 6000 consistent with a acute rhabdomyolysis. We will continue with IV fluid hydration until CK levels returned to near normal. (6) Cocaine abuse: Status: Resolved Assessment and plan: Patient had a transient rise in his troponin to peak of 0.12 not associated w/ any CP and no acute ischemic/injury pattern and his echo shows normal LV and RV function. I suspect that he had some endocardial ischemia d/t the cocaine use. (7) Rhabdomyolysis: Status: Acute Assessment and plan: continue iv fluid hydration and recheck his CK levels in the a.m. If under 1000 then dc home. If still elevated then I will consult w/ nephrology. Qualifiers: Rhabdomyolysis type: non-traumatic Qualified Code(s): M62.82 - Rhabdomyolysis (8) Numbness of right foot: Status: Acute Assessment and plan: Improving. I suspect that he has some compression neuropathy of his peroneal nerve from being down on the ground for prolonged period. Subjective Subjective Patient reports: no new complaints Interval history since last seen: Patient's CK remains elevated at 3700. His renal function has remained normal w/ BUN 10 and creatinine of 0.96. His troponin normalized. Echo showed normal LV and RV function w/ no RWMA and no valvular heart disease. I conveyed all of this in person to the patient and his mother. I explained that I would like to keep him here for one more day and continue w/ iv fluid hydration until his CK comes down under 1000. He is agreeable to the same. He indicated that he has had no CP nor any dyspnea nor any GI symptoms. Even his right lower leg/foot paresthesias are improving. Exam Narrative Exam Narrative: Young male siting up in bed alert and oriented person place time circumstance. Neck is supple nontender normal carotid pulses no JVD. Lungs are clear to auscultation. Heart is regular rate and rhythm without murmur rub or gallop. Abdomen soft nontender NABS no palpable masses no organomegaly. Lower extremities without peripheral cyanosis or edema. Neurologic exam he has normal range of motion normal strength in all 4 extremities. Objective Objective Clinical Data: Abnormal lab results 12/19/19 Range/Units 06:19 Calcium 8.3 L (8.5-10.1) mg/dL Creatine Kinase 3727 H (39-308) U/L Vital Signs Temperature 36.7 C 12/19/19 07:12 Temperature Source Tympanic 12/19/19 07:12 Pulse 71 12/19/19 07:12 Pulse Rhythm Regular 12/19/19 09:47 Pulse 60 12/18/19 09:00 Respiratory Rate 17 12/19/19 07:12 Respiratory Effort 12/19/19 09:47 Respiratory Depth Normal 12/19/19 09:47 Respiratory Pattern Normal 12/19/19 09:47 Blood Pressure 133/89 12/19/19 07:12 Blood Pressure Mean 73 12/18/19 08:01 Blood Pressure Position Sitting 12/18/19 04:20 Pulse Oximetry 97 12/19/19 07:12 Oxygen Delivery Method Room Air 12/19/19 07:12 Oxygen Flow Rate 0 12/19/19 07:12 Pain Level 0 12/19/19 07:12 Comment 12/19/19 00:07 Intake & Output 12/18/19 12/19/19 12/19/19 23:59 11:59 23:59 Intake Total 1477.5 / 3432.5 1350 / 1830 480 / 1830 Balance 1477.5 / 2107.5 1350 / 1830 480 / 1830 Weight 77.8 kg Intake: IV 987.5 / 1982.5 910 / 910 Oral 490 / 1450 440 / 920 480 / 920 Other: Urine Appearance Clear Clear Comment voids independently in the toilet Voiding Methods Toilet Laboratory Results WBC 8.54 10^3/uL (4.4-10.8) D 12/18/19 06:15 RBC 4.06 10^6/uL (4.36-5.78) L 12/18/19 06:15 Hgb 12.2 g/dL (13.5-17.5) L D 12/18/19 06:15 Hct 37.6 % (40.0-50.0) L 12/18/19 06:15 MCV 92.6 fL (80-95) 12/18/19 06:15 MCH 30.0 pg (27.0-33.0) 12/18/19 06:15 MCHC 32.4 % (32.0-36.0) 12/18/19 06:15 RDW 13.9 % (11.8-14.1) 12/18/19 06:15 Plt Count 244 10^3/uL (130-400) 12/18/19 06:15 MPV 9.7 fL (8.0-11.0) 12/18/19 06:15 Immature Gran % 0.4 12/18/19 06:15 Neutrophils % 65.1 12/18/19 06:15 Lymphocytes % 19.8 12/18/19 06:15 Monocytes % 13.8 12/18/19 06:15 Eosinophils % 0.8 12/18/19 06:15 Basophils % 0.1 12/18/19 06:15 Nucleated RBC % 0 % 12/18/19 06:15 Absolute Neutrophils 5.56 10^3/uL (1.2-6.7) 12/18/19 06:15 Absolute Lymphocytes 1.69 10^3/uL (1.2-3.4) 12/18/19 06:15 Absolute Monocytes 1.18 10^3/uL (0.1-0.8) H 12/18/19 06:15 Absolute Eosinophils 0.07 10^3/uL (0.0-0.7) 12/18/19 06:15 Absolute Basophils 0.01 10^3/uL (0.0-0.2) 12/18/19 06:15 Sodium 140 mmol/L (136-145) 12/19/19 06:19 Potassium 4.1 mmol/L (3.5-5.1) 12/19/19 06:19 Chloride 105 mmol/L (98-107) 12/19/19 06:19 Carbon Dioxide 29.7 mmol/L (21.0-32.0) 12/19/19 06:19 Anion Gap 5.3 mmol/L (3-11) 12/19/19 06:19 BUN 10 mg/dL (7-18) D 12/19/19 06:19 Creatinine 0.96 mg/dL (0.70-1.30) 12/19/19 06:19 Estimated GFR/1.73 m2 >= 60.00 (mL/min/1.73m2) 12/19/19 06:19 Glucose 99 mg/dL (74-106) 12/19/19 06:19 Calcium 8.3 mg/dL (8.5-10.1) L 12/19/19 06:19 Magnesium 2.3 mg/dL (1.8-2.4) 12/17/19 21:07 Total Bilirubin 0.2 mg/dL (0.2-1.0) 12/18/19 06:15 AST 121 U/L (15-37) H 12/18/19 06:15 ALT 77 U/L (16-63) H 12/18/19 06:15 Alkaline Phosphatase 33 U/L (46-116) L 12/18/19 06:15 Creatine Kinase 3727 U/L (39-308) H 12/19/19 06:19 Troponin I 0.07 ng/mL (<0.06) 12/18/19 06:15 Total Protein 6.4 g/dL (6.4-8.2) 12/18/19 06:15 Albumin 3.4 g/dL (3.4-5.0) 12/18/19 06:15 Urine Color Yellow (Yellow) 12/17/19 15:34 Urine Clarity Clear (Clear) 12/17/19 15:34 Urine pH 5.5 (5-8) 12/17/19 15:34 Ur Specific [place] >= 1.030 (1.005-1.025) H 12/17/19 15:34 Urine Protein 100 mg/dL (Negative) H 12/17/19 15:34 Urine Ketones Negative mg/dL (Negative) 12/17/19 15:34 Urine Blood Trace-intact (Negative) H 12/17/19 15:34 Urine Nitrite Negative (Negative) 12/17/19 15:34 Urine Bilirubin Negative (Negative) 12/17/19 15:34 Urine Urobilinogen 0.2 EU/dL (Up TO 0.2) 12/17/19 15:34 Ur Leukocyte Esterase Negative (Negative) 12/17/19 15:34 Urine RBC 0-2 HPF (0-2) 12/17/19 15:34 Urine WBC 0-2 HPF (0-5) 12/17/19 15:34 Ur Epithelial Cells Moderate HPF (Negative) 12/17/19 15:34 Urine Crystals Negative HPF (Negative) 12/17/19 15:34 Urine Bacteria Few HPF (Negative) 12/17/19 15:34 Urine Casts 10-20 hyaline LPF (Negative) 12/17/19 15:34 Urine Mucus Negative (Negative) 12/17/19 15:34 Ur Culture Indicated? No 12/17/19 15:34 Urine Glucose 100 mg/dL (Negative) 12/17/19 15:34 Urine Opiates Screen Negative (Negative) 12/17/19 15:34 Urine Methadone Screen Negative (Negative) 12/17/19 15:34 Ur Barbiturates Screen Negative (Negative) 12/17/19 15:34 Ur Tricyclics Screen Negative (Negative) 12/17/19 15:34 Ur Amphetamines Screen Negative (Negative) 12/17/19 15:34 U Benzodiazepines Scrn Negative (Negative) 12/17/19 15:34 Urine Cocaine Screen Positive (Negative) A 12/17/19 15:34 Ur THC Screen Positive (Negative) A 12/17/19 15:34 Ethyl Alcohol < 3.0 mg/dL (<3) 12/17/19 14:23 COVID-19 PCR Negative (Negative) 12/17/19 17:20 Nasopharyn COVID-19 PCR Not Applicable 12/17/19 17:20 Ref Test Perform Site [facility] 12/17/19 17:20
--- NOTE | 2019-12-19 14:52 | PHA.REVIEW ---
Pharmacy Admission Review - Admission Clinical Review Numbness of right foot (Acute) Rhabdomyolysis (Acute) Cocaine abuse (Acute) Elevated CK (Acute) Dehydration (Acute) Acute kidney injury (nontraumatic) (Acute) Penicillins Adverse Reaction (Intermediate, Unverified 12/17/19 14:14) unknown Height 5 ft 7 in Weight 77.8 kg - Renal Dosing Renal Dosing: BUN 10 mg/dL (7-18) D 12/19/19 06:19 Creatinine 0.96 mg/dL (0.70-1.30) 12/19/19 06:19 Medications needing adjustments: Reviewed (Crcl ~94 mL/min current meds okay) - Anticoagulation Anticoagulation: Hgb 12.2 g/dL (13.5-17.5) L D 12/18/19 06:15 Hct 37.6 % (40.0-50.0) L 12/18/19 06:15 Plt Count 244 10^3/uL (130-400) 12/18/19 06:15 Creatinine 0.96 mg/dL (0.70-1.30) 12/19/19 06:19 DVT Prohphylaxis: N/A Therapeutic Anticoagulation: N/A - Opiate Usage Evaluate Pain Scale/Pains Meds: N/A - Relevant Labs Sodium 140 mmol/L (136-145) 12/19/19 06:19 Potassium 4.1 mmol/L (3.5-5.1) 12/19/19 06:19 Chloride 105 mmol/L (98-107) 12/19/19 06:19 Magnesium 2.3 mg/dL (1.8-2.4) 12/17/19 21:07 Electrolytes, C-Reactive P, ESR: Reviewed (creatine kinase: 3727) - DM Control DM Control: Glucose 99 mg/dL (74-106) 12/19/19 06:19 Insulin Dosing: N/A - Heart Failure/NC Heart Failure/NC: Troponin I 0.07 ng/mL (<0.06) 12/18/19 06:15 EF%, LULU's, B-Blockers, Diuretics: N/A - BP Control BP Control: Blood Pressure 133/89 If elevated: N/A - Qtc Review If Elevated: N/A (QTc 391) - IV to PO Switch IV Medications: N/A - Home Meds Home Med List reviewed: Reviewed (no known home meds) - Current meds Current Medication Order Review: Reviewed - Comments Comments/Follow Ups: watch creatine kinase and for med changes
[2019-12-19 19:50] VITALS: BP 133/86; PULSE 65; RESP 18; TEMP 37; O2SAT 97
[2019-12-20 03:05] VITALS: BP 142/90; PULSE 57; RESP 17; TEMP 37; O2SAT 98
[2019-12-20] MEDS: Normal Saline 1,000 ML 150 ML IV ×2 (04:12→10:31)
[2019-12-20 04:23] VITALS: BP 133/86; PULSE 65; TEMP 37
[2019-12-20 07:24] VITALS: BP 158/86; PULSE 50; RESP 18; TEMP 36.8; O2SAT 97
--- NOTE | 2019-12-20 09:39 | PDOC.CMDIS ---
LACE Index Scoring Tool - Questions: Length of Stay (in days): 3 Acuity (Admit via E.D.?): Yes E.D. Visits: 1 - Answers: Total Score: 7 Risk of Readmission: Low Risk Care Management Discharge Reason for Hospitalization: Delirium, MATILDA, Hyperkalemia Discharge Plan: Carlitos will return home when ready per MD. He will follow up with his PCP and plan of care as prescribed. Referrals for service attachment completed, including GRACIE, PCP. Carlitos will transport via private vehicle with his mother. Patient/Family Education Needs: Review discharge instructions, discuss Ask Me Three.
[2019-12-20 10:22] LABS: Anion Gap 4.6 mmol/L (3-11); BUN 10 mg/dL (7-18); CO2 28.4 mmol/L (21.0-32.0); CREATININE 0.93 mg/dL (0.70-1.30); Calcium 8.8 mg/dL (8.5-10.1); Chloride 109 mmol/L (98-107); Glucose 114 mg/dL (74-106); Potassium 3.8 mmol/L (3.5-5.1); Sodium 142 mmol/L (136-145)
[2019-12-20 11:31] LABS: Creatine Kinase 2933 U/L (39-308)
--- NOTE | 2019-12-20 13:27 | W.PM.DS.N ---
Date of service: 12/20/19 Time of Service: 13:27 DS: Diagnosis Discharge Diagnosis (1) Rhabdomyolysis: Status: Acute (2) Elevated CK: Status: Acute Asessment and Plan: At the time of admission the patient presented with a potassium of 6.7 and an elevated BUN of 24 creatinine 1.87 and a CK level of 638. And troponin of 0.05. His CK peaked at 3700 but with IV fluid hydration his BUN and creatinine quickly returned to normal at the time of discharge his BUN was down to 10 his creatinine 0.93. However his CK was still elevated although on the decline at 2900. Troponin levels quickly resolved and returned to normal at 0.07. Serial EKG showed repolarization changes with no dynamic changes over multiple EKGs. Echocardiogram demonstrated normal LV and RV function. At the time of discharge patient is advised to continue drinking 8 to 10 glasses of 8 ounces of water each enough to ensure that that is urine remains clear and to get a repeat BMP and CK level in 3 days. Patient is advised to avoid cocaine or any other recreational drugs and to avoid use of NSAIDs. (3) Acute kidney injury (nontraumatic): Status: Resolved (4) Altered mental status: Status: Resolved (5) Acute hyperkalemia: Status: Resolved (6) Dehydration: Status: Resolved (7) Numbness of right foot: Status: Acute (8) Cocaine abuse: Status: Resolved Discharge Plan Disposition Patient Disposition: HOME Condition: Good Discharge Details Chief Complaint: AMS/LOC Clinical Impression: Acute hyperkalemia, Altered mental status Reason For Visit: DELIRIUM,MATILDA,HYPERKALEMIA Admit Date/Time: 12/17/19 15:44 Admit Provider: Sukhdev Rodrigez Attending Provider: Sukhdev Rodrigez Primary Care Provider: None,None ED Provider: [facility] Hospital Course: 39-year-old male who presented to the emergency department by EMS after having been found in his brother shed by the patient's mother. Patient apparently been out partying the night before and had taken cocaine. On arrival patient was obtunded had a leukocytosis of 16,000 but no anemia. Chemistry panel showed acute kidney injury with a BUN of 24 creatinine 1.87 and hyperkalemia potassium of 6.3. Creatine kinase was elevated 638 and transaminases were elevated with an AST of 85 and ALT of 87. Patient was given IV fluids CT scan of the head without contrast was ordered along with chest x-ray and urine drug screen and blood alcohol level. Noncontrast CT scan was read as normal. Chest x-ray was also read as normal. Rest of his labs were remarkable for troponin that was normal on admission at 0.05 but peaked at 0.12 before returning to normal. CPK peaked at 3700 but the time of discharge was down to 2900. BUN and creatinine returned to normal rather quickly with IV fluid hydration and by the evening of December 17, 2019 his BUN was 23 and creatinine is 1.18. At the time of discharge his BUN was down to 10 and creatinine is down to 0.93. Urine drug screen was positive for cocaine and THC but otherwise negative for opiates methadone barbiturates tricyclic antidepressants amphetamines and benzodiazepines. Blood alcohol level was less than 3. Patient continue to receive IV fluid hydration right up to the day of discharge. He had no nausea no vomiting. His obtundation resolved quickly and by the evening of his admission he was alert and responsive and answering questions appropriately and able to take oral feedings. By the next day he was back to his baseline mental status viveros. He did complain of some numbness and tingling over the dorsum of his right foot and along the lateral ankle. He had no visible swelling no bruising of the foot or ankle and no calf tenderness. He had normal pulses and normal sensation to light touch. Over the next couple of days that symptom improved remarkably on the day of discharge she just had a slight tingly feeling along the right lateral heel but had good feeling in his toes and the dorsum of his foot. On the day of discharge I discussed his case with the squad sergeant from [facility] regarding how long to continue IV fluid hydration. From what I could read the literature 1 article suggested continuing IV fluids until the urine myoglobin is negative however we do not readily have urine myoglobin available at our hospital I did send 1 out on December 16 and it is still pending at this time. Dr. Mcconnell from the nephrology service at [facility] reviewed the case over the phone with me and based on the fact that he had quick recovery of his renal function and resolution of his hyperkalemia and he is eating and drinking well with no evidence of compartment syndrome she felt that he would probably clear the myoglobin of the next few days and did not need to remain hospitalized. I concur with this I think that in the setting of normal kidney function and resolution of his electrolyte abnormalities and the fact he is making good urine output and able to eat and drink that his kidney should build to clear the rest of the CK and does not required continued hospitalization. With regard to his troponin leak I did serial EKGs which demonstrated diffuse repolarization changes and showed no serial changes over the course of a couple of days. His troponin I level on admission was 0.05 and later that evening peaked at 0.12 but by the next morning had come down to 0.07 on December 18, 2019. An echocardiogram was performed on December 19, 2019 that demonstrated normal left ventricular systolic function and size with a left ventricular ejection fraction of 50 to 55%. RV function was within normal limits. He had no valvular heart disease. Based on this I think the troponin leak was secondary to the cocaine abuse and he showed no evidence for significant structural myocardial injury. Patient is discharged home with instruction never to use cocaine again or other recreational drugs of abuse. He is to continue drinking adequate fluids and get repeat CK level in 3 days. Home Meds and New Rx's Prescriptions: No Action No Known Home Meds RF: 0 Discharge Instructions Instructions: Acute Kidney Injury (DC), Rhabdomyolysis (DC), Cocaine Abuse (DC) Additional Instructions: Get a repeat BMP and creatinine kinase in 3 days. Please drink plenty water at least 8 8 ounce glasses of water per day enough to ensure that your urine is clear. Follow-up with a primary care physician in the next 1 to 2 weeks. Avoid use of cocaine or other recreational drugs. Avoid use of nonsteroidal anti-inflammatory drugs as these increase your risk for kidney injury. Examples include ibuprofen or Motrin, Naprosyn or Aleve. Stand Alone Forms: Nursing Discharge Form Referrals: Regina Smith NP [NURSE PRACTITIONER] - 12/29/19 1:00 pm Activity:: Activity as Tolerated Equipment/Supplies:: No Equipment Needed Diet:: Normal Diet Discharge Orders Discharge Orders: Discharge Order (Routine); Ordered 12/20/19 Ordered By: Sukhdev Rodrigez Other Ambulatory Orders: Basic Metabolic Panel (Routine) Timeframe: 3 Days Facility: [facility] - Location: Laboratory Outpatient Ordered By: Sukhdev Rodrigez Creatine Kinase (Routine) Timeframe: 3 Days Facility: [facility] - Location: Laboratory Outpatient Ordered By: Sukhdev Rodrigez DS: Summary Status at Discharge Functional status at discharge: independent ambulation Overall status at discharge: patient is back to baseline Mental Status: mental status grossly normal Speech and Movement: speech and movement normal Mood: congruent mood Affect: normal affect Time Spent with Patient providing and/or coordinating discharge services: Less than 30 minutes Exam Narrative Exam Narrative: Middle-age male sitting up in the bed talking with his mother. He is alert and oriented person place time circumstance. Examination of his extremities reveals no calf swelling or tenderness no bruising he has normal pedal pulses. Normal sensation to light touch. Normal range of motion and normal strength. Psych Mental Status: mental status grossly normal Speech and Movement: speech and movement normal Mood: congruent mood Affect: normal affect DS: Data Vitals/I&O Vitals and I&O: Vital Signs Temperature 36.8 C 12/20/19 07:24 Temperature Source Tympanic 12/20/19 07:24 Pulse 50 L 12/20/19 07:24 Pulse Rhythm Regular 12/20/19 09:42 Pulse 60 12/18/19 09:00 Respiratory Rate 18 12/20/19 07:24 Respiratory Effort Non-Labored 12/20/19 09:42 Respiratory Depth Normal 12/20/19 09:42 Respiratory Pattern Normal 12/20/19 09:42 Blood Pressure 158/86 H 12/20/19 07:24 Blood Pressure Mean 73 12/18/19 08:01 Blood Pressure Position Sitting 12/18/19 04:20 Pulse Oximetry 97 12/20/19 07:24 Oxygen Delivery Method Room Air 12/20/19 07:24 Oxygen Flow Rate 0 12/20/19 07:24 Pain Level 0 12/20/19 07:24 Comment 12/19/19 00:07 Intake & Output 12/19/19 12/20/19 12/20/19 23:59 11:59 23:59 Intake Total 1467.5 / 3817.5 2370.0 / 2610.0 240 / 2610.0 Balance 1467.5 / 3817.5 2370.0 / 2610.0 240 / 2610.0 Weight 77.8 kg Intake: IV 987.5 / 2897.5 1890.0 / 1890.0 Oral 480 / 920 480 / 720 240 / 720 Other: Urine Color Yellow Yellow Urine Appearance Clear Clear Clear Voiding Methods Toilet Toilet Toilet Data Completed and Pending Labs on day of discharge: Labs from last 24 hours 12/20/19 09:15 Sodium 142 Potassium 3.8 Chloride 109 H Carbon Dioxide 28.4 Anion Gap 4.6 BUN 10 Creatinine 0.93 Estimated GFR/1.73 m2 >= 60.00 Glucose 114 H Calcium 8.8 Creatine Kinase 2933 H PFSH Social History Smoking/Tobacco Use Status: Former Tobacco Use Drug use: Occasionally Do you feel safe in your relationship?: Yes
[2019-12-20 13:31] LABS: Myoglobin, U 82 mcg/L (<=65)
== END 2019-12-20 14:39 | disposition home or self-care (01) | DRG 683 ==
LOC: ER 16:14 → ICU 17:10 → MS 12-18 09:51
PROVIDERS: General Practice; Admitting Provider Internal Medicine; Emergency Provider Registered Nurse Emergency; Visit Provider Internal Medicine
DX: N17.9 Acute kidney failure, unspecified (principal); F14.121 Cocaine abuse with intoxication with delirium; M62.82 Rhabdomyolysis; E78.5 Hyperlipidemia, unspecified; E86.0 Dehydration; R20.2 Paresthesia of skin
CPT/HCPCS: 36415; 80048; 80053; 80307; 82550; 93005; 96361; 96372; 96374; 96375; 97161; 99223; 99232; 99233; 99238; 99285; U0003; 70450; 71046; 80320; 81003; 81015; 83735; 83874; 84484; 85025; 93010; 93306